=== PATIENT | male | born 1950 | race Caucasian/White ===

== ENCOUNTER 2017-09-04 09:07 | Observation (INO) | payer OTHER ==
--- NOTE | 2017-09-04 09:13 | EDPHY ---
HPI/HX/ROS/PE/MDM Narrative: CHIEF COMPLAINT: Left-sided weakness. HPI: This patient is a 66 y/o male with history of hypertension arriving via EMS for evaluation of left-sided weakness. Last night around 20:00, 13 hours prior to arrival, he was getting ready for bed and noticed he was having difficulty walking. In particular, he felt as though his left leg was not "functioning normally" and felt numb. He was able to go to sleep following this. Prior to this episode, he felt normal. He endorses history of some left-sided lumbar pain , but denies any current back pain. This morning, he woke around 22:00 feeling better. This morning while at work, he noted some recurrent left-sided weakness , particularly in his upper thigh. He additionally had some numbness in his left upper extremity and the left side of his face beginning around 8:30 this morning. The patient denies any personal history of CVA. Family history positive for CVA in his mother at age 47. No chest pain, shortness of breath, headache, fever, vomiting, diarrhea, urinary complaints, or other associated symptoms. REVIEW OF SYSTEMS: On Sunday, the patient had some chest tightness and pressure with associated dyspnea while hiking, which is unusual for him. This has now completely resolved. He follows up with Dr. Zapien, t rail turner at [facility], and had a normal EKG and stress test one year ago and a normal followup appointment on Sunday, four days ago. Aside from this and elements discussed in the HPI, a comprehensive 10-point review of systems was reviewed and is negative. PMH: Hypertension (lisinopril). Heart murmur. Depression, anxiety. Takes daily ASA 81mg. Uses home CPAP. 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 Lives in [place]. Does not abuse tobacco , drugs, or alcohol. PHYSICAL EXAM: General:Patient is alert, in no acute distress. ENT:Eyes are normal to inspection. ENT inspection normal. Neck: Normal inspection. Full range of motion. Respiratory:No respiratory distress. Breath sounds normal bilaterally. Cardiovascular: Regular rate and rhythm. 2/6 systolic murmur. Strong peripheral pulses. Normal cap refill. Abdomen:The abdomen is nontender to palpation. There are no peritoneal signs. There are normal bowel sounds. Back: Normal to inspection. No tenderness to palpation. Skin: Normal color. No rash. Warm and dry. Extremities: Normal appearance. Full range of motion. Neuro: Oriented x3. Normal motor function. Normal sensory function. No pronator drift. Abnormal [id number] on left. Normal [id number]. ED Course: 09:12 Met EMS at bedside. 09:34 Called stroke alert. Telemedicine and stat CT activated. Paramedics relayed to me that the patient reportedly wrote a letter expressing suicidal ideation last week. He has not mentioned this to me or spoken of any 10:[address] Godoy, radiologist. Small subarachnoid bleed on CT. Patient is not a tPA candidate. 10:[address] Godoy, radiologist. CTA negative. 10:32 Reassessed patient. Discussed imaging results. Plan for admission for further evaluation. The patient is comfortable with this plan, but requests we consult with [facility] regarding the best location for admission. 10:35 Consulted with [facility]. Patient will be admitted here. Plan to consult with hospitalist service. Spoke with neurosurgery. Plan for MRI. 10:50 Consulted with hospitalist service. Dr. Wilkins accepts admission for subarachnoid hemorrhage. I spent a total of 60 minutes of critical care time in obtaining history, performing a physical exam, bedside monitoring of interventions, collecting and interpreting tests and discussion with consultants but not including time spent performing procedures. - Data Points Imaging Results: Imaging Impressions Chest X-Ray 09/04/17 09:35 Impression: No acute findings in the chest. Head CT 09/04/17 09:35 Impression: 1. Subarachnoid hemorrhage mostly contained within the high right central sulcus. 2. Adjacent cortical parenchymal hemorrhage also suspected. 3. No territorial infarct, mass effect or midline shift. Findings were communicated by telephone with Dr. Janusz Candelario MD at 2017 10:03 Head CTA 09/04/17 09:35 Impression: 1. No arterial occlusive disease. No pseudoaneurysm. 2. Patent venous sinuses. Findings were communicated by telephone with Dr. Janusz Candelario MD at 2017 10:21 Neck CTA 09/04/17 09:35 Impression: 1. No arterial occlusive disease. 2. No discrete atherosclerotic disease. 0% carotid artery stenosis bilaterally. Findings were communicated by telephone with Dr. Janusz Candelario MD at 2017 10:25. Measurement of carotid stenosis is based on the residual internal carotid diameter with [place] Symptomatic Carotid Endarterectomy Trial (NASCET) based stenosis levels. Brain MRI 09/04/17 10:31 Impression: 1. Right posterior frontal convexity subarachnoid hemorrhage with associated linear cortical restricted diffusion, suggesting hemorrhagic infarcts in the posterior division of the right middle cerebral artery near the convexity. 2. Several additional cortical and subcortical hemosiderin foci noted in the posterior right frontal lobe, as well as periventricular white matter as described above. 3. No hydrocephalus, midline shift or herniation 4. Several nonspecific hyperintense T2/FLAIR signal abnormalities in the white matter of bilateral cerebral hemispheres. Differential diagnosis includes moderate microvascular ischemic gliosis, versus less likely migraine-related sequela, vasculitis, or postinfectious/post inflammatory sequela. Findings and recommendations given to Dr. Marc Wilkins at 1351 hours on September 04, 2017. Final report concurs with initial preliminary interpretation. Head MRA 09/04/17 10:31 Impression: Negative MRA of the [place]. Findings and recommendations discussed with Emergency Department physician, Janusz Candelario MD at 13:25 hour, 09/04/2017. Final report concurs with initial preliminary interpretation. Imaging: Discussed imaging studies w/ pacu rn Radiologist Laboratory Results: Laboratory Results 09/04/17 09:07 09/04/17 09:07 09/04/17 09/04/17 09/04/17 09:19 09:07 09:07 WBC RBC Hgb Hct MCV MCH MCHC RDW Plt Count MPV Neut % (Auto) Lymph % (Auto) Nash % (Auto) Eos % (Auto) Baso % (Auto) Nucleat RBC Rel Count Absolute Neuts (auto) Absolute Lymphs (auto) Absolute Monos (auto) Absolute Eos (auto) Absolute Basos (auto) Absolute Nucleated RBC Immature Gran % Immature Gran # PT 12.2 SEC SEC (12.0-15.0) INR 0.88 (0.83-1.16) APTT 30.8 SEC SEC (23.0-38.0) Sodium 142 mEq/L mEq/L (135-145) Potassium 4.0 mEq/L mEq/L (3.3-5.0) Chloride 102 mEq/L mEq/L (97-110) Carbon Dioxide 25 mEq/l mEq/l (22-31) Anion Gap 15 mEq/L mEq/L (8-16) BUN 20 mg/dL mg/dL (7-23) Creatinine 1.0 mg/dL mg/dL (0.7-1.3) Estimated GFR > 60 Glucose 83 mg/dL mg/dL (70-100) Calcium 9.7 mg/dL mg/dL (8.5-10.4) POC Troponin I 0.01 ng/mL ng/mL (0.00-0.08) 09/04/17 09:07 WBC 5.05 10^3/uL 10^3/uL (3.80-9.50) RBC 5.58 10^6/uL 10^6/uL (4.40-6.38) Hgb 16.2 g/dL g/dL (13.7-17.5) Hct 46.7 % % (40.0-51.0) MCV 83.7 fL fL (81.5-99.8) MCH 29.0 pg pg (27.9-34.1) MCHC 34.7 g/dL g/dL (32.4-36.7) RDW 12.8 % % (11.5-15.2) Plt Count 198 10^3/uL 10^3/uL (150-400) MPV 9.5 fL fL (8.7-11.7) Neut % (Auto) 70.3 % % (39.3-74.2) Lymph % (Auto) 16.2 % % (15.0-45.0) Nash % (Auto) 9.9 % % (4.5-13.0) Eos % (Auto) 2.0 % % (0.6-7.6) Baso % (Auto) 1.2 % % (0.3-1.7) Nucleat RBC Rel Count 0.0 % % (0.0-0.2) Absolute Neuts (auto) 3.55 10^3/uL 10^3/uL (1.70-6.50) Absolute Lymphs (auto) 0.82 10^3/uL L 10^3/uL (1.00-3.00) Absolute Monos (auto) 0.50 10^3/uL 10^3/uL (0.30-0.80) Absolute Eos (auto) 0.10 10^3/uL 10^3/uL (0.03-0.40) Absolute Basos (auto) 0.06 10^3/uL 10^3/uL (0.02-0.10) Absolute Nucleated RBC 0.00 10^3/uL 10^3/uL (0-0.01) Immature Gran % 0.4 % % (0.0-1.1) Immature Gran # 0.02 10^3/uL 10^3/uL (0.00-0.10) PT INR APTT Sodium Potassium Chloride Carbon Dioxide Anion Gap BUN Creatinine Estimated GFR Glucose Calcium POC Troponin I Point of Care Test Results: Chemistry 09/04/17 09:19 POC Troponin I 0.01 ng/mL ng/mL (0.00-0.08) General Initial Vital Signs: Initial Vital Signs Temperature (C) 36.7 C 09/04/17 09:17 Heart Rate 76 09/04/17 09:17 Respiratory Rate 18 09/04/17 09:17 Blood Pressure 140/92 H 09/04/17 09:17 O2 Sat (%) 97 09/04/17 09:17 O2 Delivery Mode Room Air Allergies/Adverse Reactions: No Known Allergies Allergy (Verified 09/04/17 10:55) Home Medications: Medication Instructions Recorded Aspirin [Aspirin 81mg (*)] 81 mg PO DAILY 09/04/17 C/E/Zn/Cu/OM3/DHA/EPA/LUT/ZEAX 1 each PO DAILY 09/04/17 [Preservision Areds 2 Softgel] Docusate Sodium [Colace 100 MG (*)] 100 mg PO DAILY 09/04/17 Guar Gum [Benefiber/Nutrisource 1 each PO DAILY 09/04/17 Fiber (*)] Herbals/Supplements -Info Only 1 ea PO DAILY 09/04/17 Lisinopril [Zestril 20 mg (*)] 20 mg PO DAILY 09/04/17 [place]-3 Fatty Acids [Fish Oil 1000 1,000 mg PO DAILY 09/04/17 mg (*)] Vitamin B Complex [Vitamin B 1 each PO DAILY 09/04/17 Complex (OTC)] Departure - Departure Disposition: [facility] Inpatient Acute Clinical Impression: Subarachnoid hemorrhage Condition: Fair Report Scribed for: Janusz Candelario Report Scribed by: Elvira Vásquez Date of Report: 09/04/17 Time of Report: 09:16 Physician Review and Approval Statement: Portions of this note were transcribed by an ED scribe. I personally performed the history, physical exam, and medical decision making; and confirm the accuracy of the information in the transcribed note.
--- NOTE | 2017-09-04 09:26 | CPEKG ---
Heart Rate: 76 RR Interval: 789 P-R Interval: 160 QRSD Interval: 92 QT Interval: 404 QTC Interval: 455 P [place]: 59 QRS [place]: -31 T Wave [place]: 25 EKG Severity - ABNORMAL ECG - EKG Impression: SINUS RHYTHM EKG Impression: LEFT AXIS DEVIATION EKG Impression: CONSIDER ANTEROSEPTAL INFARCT Electronically Signed By: Rodrigo Roger 05-Sep-2017 16:52:43
[2017-09-04 09:34] LABS: PLATELET COUNT 198 10^3/uL (150-400)
[2017-09-04] MEDS ORDERED: IOPAMIDOL (ISOVUE 370) 100 ML BTL IV ONE (09:36)
[2017-09-04 10:00] LABS: INR 0.88 (0.83-1.16); PROTIME(PATIENT) 12.2 SEC (12.0-15.0)
--- NOTE | 2017-09-04 11:13 | ASMTCMCOM ---
CM Note CM Note Notes: Pt presented to the ED via EMS from his work at [employer]. Pt had left-sided weakness and difficulty walking that first started last night around 20:00 but he went to bed; pt went to work this morning and experienced the left sided weakness again and LUE and left sided facial numbness as well. Head CT shows small subarachnoid bleed. Pt admitted for further eval. Spoke w/pt and he states he lives alone, independent in [place]. He has a son who lives in [place] and also a daughter. Pt went through a divorce about 5 yrs ago but reports he is still dealing with the stress and emotional impact. Pt states he sees a table saw operator who is also a licensed therapist, about twice a month. 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 Pt states he wears CPAP at night but hasn't been getting the best sleep lately. Pt's PCP is Dr. Veto Jolly at the [facility] in [place] ([phone]) and his soap inspector is Dr Zapien through [facility]. Exact DC needs TBD. Anticipate OT/PTevals. CM to follow Date Signed: 09/04/2017 11:12 AM Electronically Signed By:Dianna Ruiz RN
[2017-09-04] MEDS ORDERED: LABETALOL HCL 5 MG/ML 20 ML MDV IVP PRN ×2 (11:14→14:51)
[2017-09-04] MEDS ORDERED: NS 1,000 ML IV SCH (11:15)
--- NOTE | 2017-09-04 12:19 | GHP ---
[f rep st] HISTORY AND PHYSICAL DATE OF ADMISSION: 09/04/2017 CHIEF COMPLAINT: Left-sided weakness. HISTORY OF PRESENT ILLNESS: This is a 66-year-old man who presents with left-sided weakness. This b kaylene last night about 10 o'clock associated with numbness as well. He describes that he felt like hi s left leg was not moving as well. The numbness did extend up into his left side of his face as well as left arm. He went to sleep, woke up a few hours later and reports that his symptoms were complet flakito resolved. 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 As he w as walking to his bus he noted that he was having trouble walking again. He discussed with 1 of his coworkers who recommended that he call EMS which he did. He does have some ongoing left-sided numbne ss as well as weakness which he describes as mild. This was not associated with any confusion. He n otes that he slurred his speech for some time, however, he does not appear to be slurring right now. EMS reported that he had made some suicidal ideation last week. He denies this to me currently. He does not have a plan. He has never tried to commit suicide before. He does have guns locked up at [facility], however, he does contract for safety with me. He does take a baby aspirin daily. PAST MEDICAL/SURGICAL HISTORY: 1. Hypertension. 2. Depression, anxiety. 3. Rotator cuff surgery. 4. Hernia surgery. MEDICATIONS: Please see medication reconciliation. ALLERGIES: No known drug allergies. FAMILY HISTORY: His mom had a stroke. SOCIAL HISTORY: He does not drink or smoke. 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 REVIEW OF SYSTEMS: A 10-point review of systems is conducted and is negative except per HPI. PHYSICAL EXAM: VITAL SIGNS: Blood pressure 149/68, heart rate 72, respiration rate 18, saturating 9 8% on room air, temperature 36.7. GENERAL: The patient is a very pleasant man who is resting comfor tably in no acute distress. HEENT: Shows him to be normocephalic, atraumatic. CARDIOVASCULAR: Tennille ws him to have a regular rate and rhythm. He has a crescendo decrescendo holosystolic murmur. S1 an d S2 are difficult to appreciate. Best heard at the right upper sternal border. PULMONARY: Lungs c lear to auscultation bilaterally. ABDOMEN: Soft, nontender, nondistended. SKIN: Shows no rash. G U: No Steinberg. NEUROLOGIC: Shows him to be alert and oriented x3. Cranial nerves 2-12 are intact. Motor is intact in the right side and is 5/5 in his upper extremities. In his lower extremities he h as about 4/5 motor throughout, right lower extremity is 5/5. He has no subjective sensation loss at this point. He has mild dysmetria bilaterally on [id number]. PSYCHIATRIC: Shows normal mood and affect. LABS: Basic metabolic panel is normal. CBC is normal. INR 0.88. DATA: 1. Head and neck CT angiogram show no occlusive disease or aneurysms. 2. Non-contrast of the head scan shows a small subarachnoid hemorrhage in the high right central sul cus with no infarct. 3. Chest x-ray, which I personally viewed and interpreted, shows nothing acute. 4. EKG, which I personally viewed and interpreted, shows sinus rhythm. He has left axis deviation. Q waves in leads V1, V2. IMPRESSION AND PLAN: 66-year-old man with acute subarachnoid hemorrhage. 1. Subarachnoid hemorrhage: I discussed this with Susan Mitchell. Neurosurgery will be involved. We will place him in the step-down unit. Neurosurgery will place parameters on blood pressure control. He is on aspirin, no recommendation for platelet transfusion at this time. We will check frequent neuro checks. I think this will be nonoperative. Angiogram is negative for any aneurysm. 2. Hypertension: For now, will continue his home lisinopril. He may need IV antihypertensives per Neurosurgery. 3. Recent suicidal ideation: He is denying this for me and contracts for safety. I do not think he is high risk for suicidality at this point. I do not think he qualifies for a mental health hold. BILLING: I spent a total of 40 minutes of critical care time managing an acute intracranial hemorrha ge. This includes examining him and discussing with consultants. /[id number]/MODL
--- NOTE | 2017-09-04 13:38 | GCON ---
[f rep st] CONSULTATION DATE OF CONSULTATION: 09/04/2017 REASON FOR CONSULTATION: Left-sided weakness with evidence of subarachnoid hemorrhage on imaging. HOSPITAL COURSE/HISTORY/MAJOR MEDICAL FINDINGS: The patient is a 66-year-old gentleman who earlier today at work was discussing with his co-worker how he was having numbness on the left side of his body. He also felt like his left side had some weakness, and based on this EMS was called and he was brought to the emergency room. He does note that last night, he was having some difficulty with walking, although he felt that he was functioning normal otherwise. He does have a history of hypertension as well. He has never had a CVA in his family. His mother did have a CVA at the age of 47, she was a heavy smoker though and had kidney disease as well. He denies any headaches. He does have some mild dizziness. He denies any nausea. He denies any right- sided numbness, tingling, pain, or weakness. The numbness in his left arm has resolved since coming to the emergency room, but he does still notice weakness within his left leg. He does take a baby aspirin daily, and does have a prior history of chest tightness with associated dyspnea when he was hiking. REVIEW OF SYSTEMS: Review of systems is negative other than what is stated in the HPI. Please see pertinent negatives, pertinent positives. PAST MEDICAL HISTORY: Significant for hypertension, history of a heart murmur, history of anxiety, history of depression, and he does use CPAP at home. He also had history of plantar fasciitis.. PAST SURGICAL HISTORY: Significant for right shoulder surgery, as well as having a bone spur removed from his right foot. 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 He normally lives in [place]. He smoked only for a few years in his 30s and has not smoke since then. He occasionally will have an alcoholic beverage. He does not use any drugs. FAMILY HISTORY: His mother had a CVA at age 40, as well as some kidney issues. His father did have dementia and in his 90s. HOME MEDICATIONS: Include aspirin 81 mg 1 p.o. daily, multivitamin, Colace 100 mg 1 p.o. q. day, Benefiber 20 mg 1 p.o. daily, fish oil, and vitamin B complex. PHYSICAL EXAMINATION: VITAL SIGNS: BP 127/74, pulse 67, respiratory rate is 18. He is 97% on room air, temp is 36.7. NEUROLOGIC: The patient is in no acute distress. He is alert x4. Answers questions appropriately. His affect is appropriate for the given situation. His face is symmetric. His tongue protrudes midline. He does appear to hear the soft spoken word. EOMI and PERRLA. Motor exam: The patient is a 5/5 and equal in his bilateral upper extremities, including his deltoids, triceps, biceps, wrist flexors, extensors, interossei, intrinsic filter plant supervisor. In his lower extremities on the right side, he has a 5/5 in his iliopsoas, hamstrings, quadriceps, plantar flexion, dorsiflexion, EHL. On the left side, he is diffusely a 5- in his quads, hamstrings, plantar flexion, dorsiflexion, and EHL. DIAGNOSTIC REVIEW: The patient underwent a head CT upon coming into the emergency room, which demonstrated subarachnoid hemorrhage mostly contained within the high right central sulcus. There is no tentorial infarct noted. No midline shift. No mass effect, and there is adjacent cortical pericardial hemorrhage as suspected. CT-A. Patient underwent a neck and a head CT-A, which was negative for any pseudoaneurysm arterial occlusive disease. He had a patent venous sinus system. DISCUSSION/DECISION-MAKING: The patient is a 66-year-old gentleman who presented to the emergency room today with a complaint of left-sided numbness and some weakness into his left leg. He was found to have a subarachnoid hemorrhage, which has been spontaneous in nature as he has not had any recent trauma. The patient does have some hypertension at baseline for which he is treated with lisinopril. On his most recent blood pressure check, he was in the 110 systolically. Today here, his blood pressure has been occasionally above 140, but has predominantly remained below that. He is being admitted to the ICU with Medicine and we will continue to monitor him closely. We have recommended a brain MRI to further investigate into the etiology of this hemorrhage. Would recommend q.1 hour neuro checks. We will hold his aspirin. He is clinically doing quite well at this point in time. He will be seen later today by Dr. Bebeto Estes who this plan has been discussed in detail with and who discussed the initial consultation with the emergency room provider. NEUROSURGEY ATTENDING NOTE I met with the patient on the evening of the consult and reviewed the imaging and plans with him. All questions were answered. /[id number]/MODL MTDD
--- NOTE | 2017-09-04 19:59 | NEUROPROG ---
Assessment: [id number] - Neurology Consult: - CC: SAH and Right Posterior Intracerebral Hemorrhage - HPI: Pt developed left leg weakness and numbness on 09/03/17 at 10 pm. Symptoms resolved that evening. The next morning he noted his left leg was not working correctly so he came to [facility] ER. A head CT showed a. Brain MRA and CTA head/ neck were unremarkable. Brain MRI w/o con showed a possible hemorrhagic stroke. Neurosurgery has seen the patient but does not recommend any surgery however they are considering a cerebral angiogram to assess for any bleeding aneurysm. I initially saw the patient on 09/04/17. He feels back to normal. Neurologic exam was normal. - PMHx: HTN, depression/anxiety, rotator cuff surgery, hernia surgery, LEORA on CPAP - Home Meds: lisinopril, ASA 81 mg qd - SHx: no tobacco or alcoholism FHx: CVA - ROS: Pt denied acute fever, total vision loss, active severe chest pain, respiratory failure, total body severe rash, total bowel/bladder incontinence, psychosis, active seizures, or active bleeding - O: VS reviewed General: Alert Eyes: Fundoscopic exam not able to visualize optic disks CV: Heart RRR, no murmur, no carotid bruit Lungs: Clear to auscultation bilaterally, no rhonchi or rales Neuro: - Mental: . Oriented x person/place/date . concentration appears normal . speech fluency/comprehension normal . memory appears normal . fund of knowledge appear intact - Cranial Nerves: . II: PERRL, VFFTC . III/IV/: EOMI, no nystagmus, normal smooth pursuits, no Ptosis . V: facial sensation intact to LT . VII: face symmetric to eye closure and smile . VIII: hearing intact to conversation . IX/X: uvula raises symmetrically . XI: SCM 5/5 B/L strength . XII: tongue protrudes midline w/nl strength - Motor: . Tone: normal tone in all 4 extremity . Strength: no pronator drift, strength 5/5 throughout (B/L delt, bic, tri, hand microgrinder operator, hf/he, df/pf) - Reflexes: B/L bic/BR/patella 2/4 - Sensory: all 4 extremity intact to light touch - Coord: [id number] wnl, JOSE wnl, cucz-bi-[id number] wnl - Gait: deferred - NIH SS 0 - Labs: 09/04/17- CBC wnl, Coags wnl, Chem wnl - Rads: 09/04/17- Head CT w/o: Subarachnoid hemorrhage mostly contained within the high right central sulcus. Adjacent cortical parenchymal hemorrhage also suspected. No territorial infarct, mass effect or midline shift (I personally visualized the images on 09/04/17) 09/04/17- CTA head/neck: unremarkable 09/04/17- Brain MRI w/o con: Right posterior frontal convexity subarachnoid hemorrhage with associated linear cortical restricted diffusion, suggesting hemorrhagic infarcts in the posterior division of the right middle cerebral artery near the convexity. Several additional cortical and subcortical hemosiderin foci noted in the posterior right frontal lobe, as well as periventricular white matter 09/04/17- Brain MRA: unremarkable - Assessment: 1. Right Posterior Frontal SAH w/underlying Restricted Diffusion on 09/04/17: Appears to have caused left leg weakness/sensory changes. Viewing the images and reviewing history I suspect a primary hemorrhage. I agree with neurosurgery consideration for cerebral angiogram. - 2. HTN - Plan: - Stop aspirin 81 mg qd at this time given concern for primary brain hemorrhage - Blood pressure guidelines per neurosurgery - neurosurgery considering cerebral angiogram - Neurology will follow closely Objective: Vital Signs Temp Pulse Resp BP Pulse Ox 37.1 C 73 14 113/66 96 09/04/17 19:41 09/04/17 19:41 09/04/17 19:41 09/04/17 19:41 09/04/17 19:41 09/03/17 09/04/17 09/05/17 05:59 05:59 05:59 Intake Total 500 Output Total 400 Balance 100 PT 12.2 SEC (12.0-15.0) 09/04/17 09:07 INR 0.88 (0.83-1.16) 09/04/17 09:07 Allergies/Adverse Reactions: No Known Allergies Allergy (Verified 09/04/17 10:55)
[2017-09-05] MEDS ORDERED: NS 500 ML IV ONE (01:00)
--- NOTE | 2017-09-05 08:17 | SOAPPROG ---
SOAP Progress Note Assessment/Plan: Assessment/Plan: 66 yo male with transient Left arm/leg weakness and sensory changes now resolved MRI shows hemorrhagic infarcts and SAH in high right central sulcus, no territorial infarct. Other imaging negative. Discussed this with Dr. Estes who spoke to Dr. Sr and they do not feel further imaging is required and recommend patient follow up as outpatient with Neurology. We will sign off per Dr. Estes. This info was conveyed to Dr. Rushing. 09/05/17 08:17 09/05/17 12:29 Subjective: awake, alert, comfortable. Denies BULL[place] or left arm/leg weakness. He has no complaints. Objective: Vital Signs Temp Pulse Resp BP Pulse Ox 36.4 C 81 14 130/76 H 98 09/05/17 07:41 09/05/17 07:41 09/05/17 07:41 09/05/17 07:41 09/05/17 07:41 09/04/17 09/05/17 09/06/17 05:59 05:59 05:59 Intake Total 2508 Output Total 400 Balance 2108 PT 12.2 SEC (12.0-15.0) 09/04/17 09:07 INR 0.88 (0.83-1.16) 09/04/17 09:07 MRI Brain: 1. Right posterior frontal convexity subarachnoid hemorrhage with associated linear cortical restricted diffusion, suggesting hemorrhagic infarcts in the posterior division of the right middle cerebral artery near the convexity. 2. Several additional cortical and subcortical hemosiderin foci noted in the posterior right frontal lobe, as well as periventricular white matter as described above. 3. No hydrocephalus, midline shift or herniation 4. Several nonspecific hyperintense T2/FLAIR signal abnormalities in the white matter of bilateral cerebral hemispheres. Differential diagnosis includes moderate microvascular ischemic gliosis, versus less likely migraine-related sequela, vasculitis, or postinfectious/post inflammatory sequela. MRA: negative [place] CTA Head/neck: Negative CTHead: 1. Subarachnoid hemorrhage mostly contained within the high right central sulcus. 2. Adjacent cortical parenchymal hemorrhage also suspected. 3. No territorial infarct, mass effect or midline shift Neuro: A+Ox4 [place], sens +LT follows commands, speech clear/fluent Face symmetric ICD10 Worksheet Patient Problems: Problems Problem Status Onset Subarachnoid hemorrhage Acute
[2017-09-05] MEDS ORDERED: PRESERVISION AREDS2 FORMULA EYE VIT 1 EACH PO SCH (09:00)
[2017-09-05] MEDS ORDERED: VITAMIN B COMPLEX 1 EA CAP/TAB PO SCH (09:00)
[2017-09-05] MEDS ORDERED: LISINOPRIL 20 MG TAB PO SCH (09:00)
[2017-09-05] MEDS ORDERED: DOCUSATE SODIUM 100 MG CAP PO SCH (09:00)
[2017-09-05] MEDS ORDERED: BENEFIBER/NUTRISOURCE FIBER PKT 1 EACH PO SCH (09:00)
--- NOTE | 2017-09-05 09:44 | NEUROPROG ---
Assessment: Case and images reviewed with neurology colleagues and we suspect primary brain hemorrhage and not primary ischemic stroke with secondary hemorrhagic conversion. Neurosurgery considering cerebral angiogram. Will get TTE to ensure no cardiac thrombus just in case this was an atypical ischemic stroke with secondary hemorrhage. Objective: Vital Signs Temp Pulse Resp BP Pulse Ox 36.4 C 81 14 130/76 H 98 09/05/17 07:41 09/05/17 07:41 09/05/17 07:41 09/05/17 08:19 09/05/17 07:41 09/04/17 09/05/17 09/06/17 05:59 05:59 05:59 Intake Total 2508 Output Total 400 Balance 2108 PT 12.2 SEC (12.0-15.0) 09/04/17 09:07 INR 0.88 (0.83-1.16) 09/04/17 09:07 Allergies/Adverse Reactions: No Known Allergies Allergy (Verified 09/04/17 10:55)
[2017-09-05 12:32] VITALS: BP 131/67
--- NOTE | 2017-09-05 13:43 | ECHO ---
[email or web address] [address] [address] Main: [phone] Fax: Transthoracic Echocardiogram Name: TYRELL ARAMBULA MR#: [id number] Study Date: 09/05/2017 Study Time: 11:30 AM Date of : 1950 Age: 66 year(s) Height: 188 cm (74 in.) Weight: 95.26 kg (210 lb.) BSA: 2.22 m2 Gender: Male Examination: Echo Indication: Hemorrhagic stroke Image Quality: Contrast: Requested by: Dayo Rushing BP: 130 mmHg/76 mmHg Heart Rate: Rhythm: Indication: Hemorrhagic stroke Procedure Staff Gas System Operator: Rl Liao RDCS Reading Physician: Trell Thrasher MD Requesting Provider: Conclusions: Normal size left ventricle. No LV hypertrophy. Normal global systolic LV function. EF is 78 %. No regional wall motion abnormality. Diastolic dysfunction is present. . Normal RV function. The mitral valve is normal in appearance and function. Moderate aortic cusp calcification is present. Mild aortic valve regurgitation is present. Moderate calcific aortic valve stenosis. The Ao Mean PG is 26 mmHg with Ao max PG of 50 mmHg. The AV Vmax is 3.6 m/s. Trivial to mild tricuspid valve regurgitation. No previous Measurements: Chambers Valvular Assessment AV/MV Valvular Assessment TV/PV Normal Normal Normal Name Value Range Name Value Range Name Value Range Ao Saritha (MM): 3.3 cm (2.2 cm-3.7 AV Vmax: 3.60 m/s (1 m/s-1.7 TR Vmax: 2.51 mm/s ( - ) cm) m/s) TR PGmax: 25 mmHg ( - ) IVSd (2D): 1.0 cm (0.6 cm-1.1 AV maxP mmHg ( - ) syst. PAP: 30 mmHg ( - ) cm) AV meanP mmHg ( - ) PV Vmax: 0.91 m/s (0.6 m/s-0.9 LVDd (2D): 4.7 cm (4.2 cm-5.9 HUGO (VTI): 1.1 cm ( - ) m/s) cm) AR (PHT): 592 ms ( - ) PV PGmax: 3 mmHg ( - ) LVDs (2D): 2.5 cm (2.1 cm-4 MV E Vmax: 0.94 m/s ( - ) cm) MV A Vmax: 0.80 m/s ( - ) LVPWd (2D): 1.0 cm (0.6 cm-1 cm) MV E/A: 1.17 ( - ) LVOTd 2.1 cm 2.1 cm mm MV meanP mmHg ( - ) MVA (Vmax): 2.8 m/s ( - ) Patient: TYRELL ARAMBULA Study Date: 09/05/2017 Page 1 of 2 11:30 AM LVEF (2D): 78 (>=54 %) Continued Measurements: Chambers Valvular Assessment AV/MV Valvular Assessment TV/PV Name Value Name Value Name Value LADs Lon.6 cm MV Annulus: 3.1 cm CVP (est.): 5 mmHg LA Area: 15.9 cm2 MV E' Septal: 0.06 m/s LA Volume: 46 ml MV E/E' Septal: 15.30 LA Volume Index: 20.7 ml/m2 MV E/E' Lateral: 16.50 MV VTI: 35.90 cm AR Vmax: 3.00 cm/s AR ERO: 0.370 cm2 AR PISA radius: 0.7 cm AR Reg. Volume: 57.0 ml AR Reg. Fraction: 56 % AR VTI: 155.0 cm Findings: Left Ventricle: Normal size left ventricle. No LV hypertrophy. Normal global systolic LV function. EF is 78 %. No regional wall motion abnormality. Diastolic dysfunction is present. . Right Ventricle: Normal size right ventricle. Normal RV function. Left Atrium: The left atrium is normal in size. Right Atrium: The right atrium is normal in size. Mitral Valve: The mitral valve is normal in appearance and function. There is no mitral valve regurgitation. Aortic Valve: Moderate aortic cusp calcification is present. Mild aortic valve regurgitation is present. Moderate calcific aortic valve stenosis. The Ao Mean PG is 26 mmHg with Ao max PG of 50 mmHg. The AV Vmax is 3.6 m/s. Tricuspid Valve: The tricuspid valve appears normal. Trivial to mild tricuspid valve regurgitation. Pulmonic Valve: The pulmonic valve is normal in appearance and function. Aorta: The aorta is normal. Pericardium: No pericardial effusion. (No Signature Object) Patient: TYRELL ARAMBULA Study Date: 09/05/2017 Page 2 of 2 11:30 AM [id number]
--- NOTE | 2017-09-05 16:30 | NEUROPROG ---
Assessment: [id number] - Neurology Consult: - CC: SAH and Right Posterior Intracerebral Hemorrhage - Narrative Summary: Pt developed left leg weakness and numbness on 09/03/17 at 10 pm. Symptoms resolved that evening. The next morning he noted his left leg was not working correctly so he came to [facility] ER. A head CT showed a. Brain MRA and CTA head/ neck were unremarkable. Brain MRI w/o con showed a possible hemorrhagic stroke. Neurosurgery has seen the patient but does not recommend any surgery however they are considering a cerebral angiogram to assess for any bleeding aneurysm. I initially saw the patient on 09/04/17. He feels back to normal. Neurologic exam was normal. - HPI: F/U 09/05/17. Pt noted some brief return of his left side sensory changes briefly which resolved quickly. This is likely stroke recrudescence. He will tell me if it recurs. Pt currently feels fine w/o problems. I discussed case with neurosurgery and a cerebral angiogram with small chance of stroke risk seems to risky given it seems a hemorrhagic aneurysm is very unlikely. It seems this is a primary hemorrhage in the parenchyma with spill over into the subarachnoid space so I will stop aspirin and recommend good control of HTN. Pt will f/u in 1-2 weeks in the neurology clinic. I will offer a referral to a stroke expert at that time given the atypical presentation of this hemorrhage. - PMHx: HTN, depression/anxiety, rotator cuff surgery, hernia surgery, LEORA on CPAP - Home Meds: lisinopril, ASA 81 mg qd - SHx: no tobacco or alcoholism FHx: CVA - ROS: Pt denied acute fever, total vision loss, active severe chest pain, respiratory failure, total body severe rash, total bowel/bladder incontinence, psychosis, active seizures, or active bleeding - Labs: 09/04/17- CBC wnl, Coags wnl, Chem wnl - Rads: 09/04/17- Head CT w/o: Subarachnoid hemorrhage mostly contained within the high right central sulcus. Adjacent cortical parenchymal hemorrhage also suspected. No territorial infarct, mass effect or midline shift (I personally visualized the images on 09/04/17) 09/04/17- CTA head/neck: unremarkable 09/04/17- Brain MRI w/o con: Right posterior frontal convexity subarachnoid hemorrhage with associated linear cortical restricted diffusion, suggesting hemorrhagic infarcts in the posterior division of the right middle cerebral artery near the convexity. Several additional cortical and subcortical hemosiderin foci noted in the posterior right frontal lobe, as well as periventricular white matter 09/04/17- Brain MRA: unremarkable 09/05/17- TTE: no cardiac thrombus noted 09/04/17- 24 hour telemetry: no afib noted - Assessment: 1. Right Posterior Frontal SAH w/underlying Restricted Diffusion on 09/04/17: Appears to have caused left leg weakness/sensory changes. Viewing the images and reviewing history I suspect a primary hemorrhage. discussed case with neurosurgery and a cerebral angiogram with small chance of stroke risk seems to risky given it seems a hemorrhagic aneurysm is very unlikely (still uncertain if this was a primary ischemic event with secondary hemorrhagic conversion which seems unlikely but possible). It seems this is a primary hemorrhage in the parenchyma with spill over into the subarachnoid space so I will stop aspirin and recommend good control of HTN. Pt will f/u in 1-2 weeks in the neurology clinic. I will offer a referral to a stroke expert at that time given the atypical presentation of this hemorrhage. They can consider if a cerebral angiogram is needed based on review of the case. - 2. HTN - Plan: - Stop aspirin 81 mg qd at this time given concern for primary brain hemorrhage - Blood pressure goal < 140/90 - F/U in 1-2 weeks in neurology clinic - 35 min spent with patient, majority of time spent counseling on hemorrhage causes and treatment options. Objective: Vital Signs Temp Pulse Resp BP Pulse Ox 36.9 C 74 15 131/67 H 98 09/05/17 12:00 09/05/17 12:00 09/05/17 12:00 09/05/17 12:00 09/05/17 12:00 09/04/17 09/05/17 09/06/17 05:59 05:59 05:59 Intake Total 2508 Output Total 400 Balance 2108 PT 12.2 SEC (12.0-15.0) 09/04/17 09:07 INR 0.88 (0.83-1.16) 09/04/17 09:07 Allergies/Adverse Reactions: No Known Allergies Allergy (Verified 09/04/17 10:55)
--- NOTE | 2017-09-05 17:08 | GDS ---
[f rep st] DISCHARGE SUMMARY ALL DIAGNOSES: 1. Subarachnoid hemorrhage. 2. Stroke. 3. Moderate aortic stenosis. 4. Hypertension. 5. Recent suicidal ideation. HOSPITAL COURSE: This is a 66-year-old man who presented with an atraumatic subarachnoid hemorrhage. He presented with some left-sided weakness, as well as numbness. This is resolved at the time of discharge. He was seen by Neurosurgery, as well as Neurology. He had imaging including head CT scan showing the hemorrhage; head and neck CT angiograms, which showed no occlusive disease; and no aneurysms. Brain MRI, which showed the hemorrhage, as well as a stroke, and head MRA, which was negative. He underwent an echocardiogram, which showed moderate aortic stenosis, no LV thrombus. He was taking aspirin prior to his admission. In discussion with Neurology, as well as Neurosurgery, we feel that this was primarily a hemorrhage with a subsequent ischemic stroke. Recommendation is to stop aspirin. Neurosurgery did not feel as though a cerebral angiogram was warranted at this time. He will follow up with Dr. Rushing in 1 week. 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 Rushing with Neurology. He is comfortable with this. He is discharged in stable condition. EMS made us aware of some suicidal ideation last week. He denies being actively suicidal, has never made an attempt, and has no plans. He contracted for safety. He has an outpatient counselor. FOLLOWUP: 1. Dr. Rushing for his hemorrhagic stroke. 2. Primary care physician for his moderate aortic stenosis, as well as hypertension. /[id number]/MODL MTDD
== END 2017-09-05 16:45 | disposition home or self-care (01) ==
LOC: EDUNIT# → EDBD → F2N 11:52
PROVIDERS: ADMIT Student in an Organized Health Care Education/Training Program; ATTEND Student in an Organized Health Care Education/Training Program
DX: I60.9 Nontraumatic subarachnoid hemorrhage, unspecified (principal); I63.9 Cerebral infarction, unspecified; I35.0 Nonrheumatic aortic (valve) stenosis; I10 Essential (primary) hypertension
CPT/HCPCS: 70450; 70496; 70498; 70544; 70551; 71046; 92610; 93005; 93306; 97161; 97165; 99291; G0378; G8978; G8979; G8980; G8987; G8988; G8989; G8996; G8997; G8998; Q9967; 84484-PO